=== PATIENT | male | born 1980 | race Caucasian/White ===

== ENCOUNTER 2017-05-05 09:59 | Day surgery (SDC) | payer OTHER ==
[~2017-05-05] VITALS: Ht 162.6 cm; Wt 89.0 kg
[2017-05-05] VITALS (7 sets, daily range): BP systolic 106–130; BP diastolic 58–78; PULSE 65–76; RESP 14–19; Ht 162.6 cm; Wt 89.0 kg
[~2017-05-05 09:59] MED LIST: CEFAZOLIN 2 GM/50 ML (PMX) 50 ML IVPB ONE; SOD CHLORIDE 0.9% 1,000 ML IV SCH
[2017-05-05 11:26] LABS: BASOPHIL # 0.1 10^3/ul (0.0-0.1); BASOPHILS % 0.7 % (0.0-2.0); EOSINOPHILS # 0.3 10^3/ul (0.0-0.5); EOSINOPHILS % 2.5 % (0.0-7.0); HEMATOCRIT 47.7 % (42.0-52.0); LYMPHOCYTES # 4.2 10^3/ul (0.8-2.9); LYMPHOCYTES % 40.2 % (15.0-51.0); MEAN CORPUSCULAR HEMOGLOBIN 29.1 pg (29.0-33.0); MEAN CORPUSCULAR HGB CONC 33.5 g/dl (32.0-37.0); MEAN CORPUSCULAR VOLUME 86.9 fl (82.0-101.0); MONOCYTE # 0.9 10^3/ul (0.3-0.9); MONOCYTES % 8.8 % (0.0-11.0); NEUTROPHILS % 47.5 % (39.0-77.0); PLATELET COUNT 270 10^3/UL (140-415); RED BLOOD COUNT 5.49 10^6/ul (4.70-6.10); RED CELL DISTRIBUTION WIDTH 12.6 % (11.5-14.5); WHITE BLOOD COUNT 10.4 10^3/ul (4.8-10.8)
[2017-05-05 11:28] LABS: INR 0.89; PT RATIO 0.9
[2017-05-05 11:29] LABS: PARTIAL THROMBOPLASTIN TIME 25.9 Sec (25.0-35.0)
[2017-05-05 11:33] LABS: ALBUMIN 4.4 g/dl (3.3-4.9); ALBUMIN/GLOBULIN RATIO 1.25; BILIRUBIN,INDIRECT 0.3 mg/dl (0-1.1); BILIRUBIN,TOTAL 0.3 mg/dl (0.2-1.3); TOTAL PROTEIN 7.9 g/dl (6.1-8.1)
[2017-05-05 11:43] LABS: CALCIUM 9.6 mg/dl (8.4-10.2); CREATININE 0.77 mg/dl (0.61-1.24); POTASSIUM 4.1 mmol/L (3.5-5.1)
[2017-05-05] MEDS ORDERED: LIDOCAINE 2% (MDV) 20 ML INJ ONE (15:28)
[2017-05-05] MEDS ORDERED: BUPIVACAINE 0.5% (SDV) 30 ML INJ ONE (15:28)
[2017-05-05] MEDS ORDERED: PROPOFOL 20 ML ONE (16:22)
[2017-05-05] MEDS ORDERED: MIDAZOLAM 1 MG/ML 2 ML INJ ONE (16:23)
[2017-05-05] MEDS ORDERED: FENTAnyl 50 MCG/ML VIAL ONE (16:23)
[2017-05-05] MEDS ORDERED: CEFAZOLIN 1 GM INJ ONE (16:28)
[2017-05-05] MEDS ORDERED: BUPIVACAINE 0.5%/EPI (SDV) 10 ML INJ ONE (16:29)
[2017-05-05] MEDS ORDERED: KETOROLAC 30 MG INJ ONE (16:49)
[2017-05-05] MEDS ORDERED: METOCLOPRAMIDE 10 MG INJ ONE (16:49)
[2017-05-05] MEDS ORDERED: ONDANSETRON 4 MG INJ ONE (16:49)
[2017-05-05] MEDS ORDERED: DEXAMETHASONE 4 MG/ML 1 ML INJ ONE (16:49)
--- NOTE | 2017-05-05 16:58 | OPR ---
Date/Time of Note Date/Time of Note DATE: 05/05/17 TIME: 16:55 Operative Report Procedure Date: May 05, 2017 Preoperative Diagnosis back mass Postoperative Diagnosis same Operation Performed 1. excision of back mass 8 x 3 cm mass 8 cm incision 2. localized adjacent transfer with the use of skin flaps 24 sq cm defect 3. therapeutic injection of subcutaneous marcaine cpt code 69169 Surgeon: ELLIOT DAO MD Anesthesia Type: general Estimated Blood Loss: minimal Specimens back mass surgical markings short super long left skin posterior Grafts/Implants: none Complications: no Indications This is a 28-year-old male with back mass. He requires surgical excision. Risks alternatives benefits and percent were discussed the patient. Patient's best understanding consents to the operation. Procedure Description Patient is taken to the OR and prepped and draped in usual sterile fashion. Surgical timeout was performed IV antibiotics given. Elliptical incision is made with a 15 blade circumferentially around the mass including the skin. Dissection cautery was carried down to the deep subcutaneous tissues. The mass is excised en bloc with surgical markings are short superior long left and skin is posterior. There is good hemostasis due to the tissue defect skin flaps were raised superiorly and inferiorly. Localized adjacent tissue transfer with these of skin flaps were performed. Multilayer closure with interrupted 2-0 Vicryl and skin edwar. Therapeutic subcutaneous Marcaine is injected throughout the incision site. Dry dressings were applied. Rahel FERRIS May 05, 2017 16:58
[2017-05-05] MEDS ORDERED: HYDROmorphONE (0.2 MG/ML) 10ML SYG IV PRN (17:00)
[2017-05-05] MEDS ORDERED: OXYCODONE/ACETAMINOPHEN (5/325) TAB PO PRN ×2 (17:00)
[2017-05-05] MEDS ORDERED: ONDANSETRON 4 MG INJ IV PRN (17:00)
[2017-05-05] MEDS ORDERED: EPHEDrine SULFATE 50 MG/5 ML SYG IV PRN (17:00)
[2017-05-05] MEDS ORDERED: FENTAnyl 50 MCG/ML VIAL IV PRN ×3 (17:00)
[2017-05-05] MEDS ORDERED: morphine (1 MG/ML) 10ML SYRINGE IV PRN ×2 (17:00)
[2017-05-05] MEDS ORDERED: HYDROCODONE/APAP (5/325) TAB PO ONE (17:00)
[2017-05-05] MEDS ORDERED: LABETALOL HCL 20MG INJ IV PRN (17:00)
== END 2017-05-05 18:30 | disposition home or self-care (01) ==
LOC: SDS 09:59
PROVIDERS: ATTEND Surgery
DX: L72.0 Epidermal cyst (principal); E66.9 Obesity, unspecified; Z68.33 Body mass index [BMI] 33.0-33.9, adult
CPT/HCPCS: 14001; 80053; 85025; 85610; 85730; 88307; J0690; J1100; J1885; J2250; J2405; J2765; J3010; Z7512; Z7610